=== PATIENT | male | born 1970 | race Caucasian/White ===

== ENCOUNTER 2017-09-07 17:48 | Emergency (ER) | payer BC ==
[2017-09-07] MEDS: predniSONE 20 MG TAB PO (19:13)
[2017-09-07] MEDS: METHOCARBAMOL 500 MG TAB PO (19:13)
[2017-09-07] MEDS: NORCO, ANEXSIA 5/325MG TABLET (HYDROcodone/ACETAMINOPHEN) PO (19:14)
== END 2017-09-07 19:31 | disposition home or self-care (01) ==
LOC: M ED 17:48
DX: M54.17 Radiculopathy, lumbosacral region (principal); S39.002A Unspecified injury of muscle, fascia and tendon of lower back, initial encounter; X50.9XXA Other and unspecified overexertion or strenuous movements or postures, initial encounter; Y92.018 Other place in single-family (private) house as the place of occurrence of the external cause; I10 Essential (primary) hypertension; K21.9 Gastro-esophageal reflux disease without esophagitis; Z79.899 Other long term (current) drug therapy; Z88.8 Allergy status to other drugs, medicaments and biological substances
CPT/HCPCS: 99282

== ENCOUNTER 2017-09-10 17:14 | Emergency (ER) | payer BC ==
[2017-09-10] MEDS: KETOROLAC 60 MG/2 ML VIAL (J1885) IM (20:15)
[2017-09-10] MEDS: diazePAM 5 MG TAB PO (20:15)
== END 2017-09-10 21:48 | disposition home or self-care (01) ==
LOC: M ED 17:14
DX: M54.16 Radiculopathy, lumbar region (principal); M51.26 Other intervertebral disc displacement, lumbar region; I10 Essential (primary) hypertension; M54.9 Dorsalgia, unspecified; K21.9 Gastro-esophageal reflux disease without esophagitis; F41.9 Anxiety disorder, unspecified; F32.9 Major depressive disorder, single episode, unspecified; Z79.899 Other long term (current) drug therapy; Z88.8 Allergy status to other drugs, medicaments and biological substances
CPT/HCPCS: J1885

== ENCOUNTER → 2018-05-02 | Outpatient (REF) | payer BC ==
[~2018-05-02] MED LIST: KETO10TAB PO; LOSARTAN-HCTZ; NAPR-885; NORCOTAB PO; OMEP40CA2; PRED20TA PO; ROBA500T PO; VALI5TAB PO; VENL37.52
[2018-05-02 14:34] LABS: C REACTIVE PROTEIN QUANTITATIV < 0.30 MG/DL (0.00-0.30); RHEUMATOID FACTOR QUANT < 10.0 IU/ML (<15.0); URIC ACID 3.9 MG/DL (3.5-7.2)
[2018-05-02 14:57] LABS: FOLATE 14.5 NG/ML; VITAMIN B12 LEVEL 284 PG/ML
[2018-05-10 14:14] LABS: ANTINUCLEAR ANTIBODIES DIRECT Negative (Negative); HLA-B27 Negative (.); Lyme Disease IgG/IgM Antibodie <0.91 ISR (0.00-0.90); Lyme Disease IgM Ab Quantitati <0.80 index (0.00-0.79)
== END ==
LOC: M LAB REF 13:58
PROVIDERS: ATTEND Physician Assistant
DX: M47.26 Other spondylosis with radiculopathy, lumbar region (principal)